=== PATIENT | female | born 1990 | race Native Hawaiian/Other Pacific Islander ===

== ENCOUNTER 2020-07-31 08:54 | Emergency (ER) | payer MEDICAID ==
[~2020-07-31] VITALS: Ht 154.9 cm; Wt 74.1 kg
[2020-07-31 09:02] VITALS: BP 130/86; TEMP 98.5
[2020-07-31] MEDS ORDERED: IBU800 M1 PO (09:18)
[2020-07-31 11:06] LABS: BASO % 0.4 % (0.0-2.0); EOS # 0.2 (0.0-0.7); EOS % 2.1 % (0-4.0); GRAN # 5.5 (1.4-6.5); HEMATOCRIT 30.3 % (37.0-47.0); HEMOGLOBIN 8.3 g/dl (12.5-16.0); LYMPH # 1.9 (1.2-3.4); LYMPH % 23.5 % (20.0-51.0); MEAN CELL VOLUME 68 fl (80.0-100.0); MEAN CORPUSCULAR HEMOGLOBIN 19 pg (27.0-31.0); MEAN CORPUSCULAR HGB CONC 27 g/dl (33.0-37.0); MEAN PLATELET VOLUME 9.3 fl (7.4-10.4); MONO # 0.4 (0.1-0.6); MONO % 4.7 % (1.7-9.3); PLATELET COUNT 320 K/mm3 (130-400); RED BLOOD COUNT 4.48 M/mm3 (4.10-5.30); REDCELL DISTRIBUTION WIDTH-CV 18.6 % (11.5-14.5)
[2020-07-31] MEDS ORDERED: NATURAL IRON65 MG PO (11:33)
[2020-07-31 11:47] VITALS: PULSE 93
== END 2020-07-31 11:47 | disposition home or self-care (01) ==
LOC: COL.ER 08:54
PROVIDERS: Emergency Medicine
DX: D64.9 Anemia, unspecified (principal); M79.673 Pain in unspecified foot